=== PATIENT | female | born 1955 | race Caucasian/White ===

== ENCOUNTER 2020-04-11 20:23 | Emergency (ER) | payer OTHER ==
[~2020-04-11] VITALS: Ht 175.3 cm; Wt 120.2 kg
[~2020-04-11 20:23] MED LIST: CELEBREX 200 M200 M1 PO; DAILY MULTIPLE1 EACH PO; LIPITOR10 MG PO; MAXIDE PO; SINGULAIR 10 MG10 M1 PO; VITAMIN D400 UNI1 PO; VITAMIN E400 UNIT PO; XARELTO15 MG PO
[2020-04-11] MEDS ORDERED: CHLORTHALIDONE25 MG PO (20:32)
[2020-04-11] MEDS ORDERED: [UNRECOGNIZED DRUG - OTHER] PO (20:33)
[2020-04-11] MEDS ORDERED: LISINOPRIL2.5 MG PO (20:33)
[2020-04-11] MEDS ORDERED: ARIMIDEX PO (20:33)
[2020-04-11] MEDS ORDERED: ELIQUIS5 MG PO (20:34)
[2020-04-11 21:22] LABS: ABSOLUTE NEUTROPHILS 7.8 thou/uL (1.4-8.2); BASOPHILS 0.6 % (0.0-2.0); EOSINOPHILS 0.9 % (0.0-3.0); HEMATOCRIT 40.8 % (37.0-47.0); HEMOGLOBIN 14.2 gm/dL (12.0-15.0); LYMPHOCYTES 14.5 % (24.0-44.0); MCH 35.7 pg (26.0-34.0); MCHC 34.7 g/dL (28.0-37.0); MCV 102.8 fL (80.0-100.0); MONOCYTES 7.9 % (1.0-8.0); PLATELET COUNT 208 thou/uL (150-400); POLYS 76.1 % (36.0-66.0); RBC 3.97 mil/uL (4.20-5.00); RDW 12.4 % (10.5-14.5); WBC 10.3 thou/uL (4.0-11.0)
[2020-04-11 21:38] LABS: CALCIUM 9.3 mg/dL (8.5-10.1); CREATININE 1.3 mg/dL (0.6-1.0); POTASSIUM 3.6 mmol/L (3.5-5.1)
[2020-04-11 21:43] LABS: ALBUMIN 3.8 g/dL (3.4-5.0); TOTAL BILIRUBIN 0.4 mg/dL (0.2-1.0)
[2020-04-11 23:19] VITALS: BP 164/78
[2020-04-11 23:20] LABS: URINE BILIRUBIN NEGATIVE (Negative); URINE BLOOD TRACE (Negative); URINE CLARITY CLEAR; URINE COLOR YELLOW; URINE GLUCOSE-RANDOM* NEGATIVE (Negative); URINE KETONES 2+ (Negative); URINE LEUKOCYTES-REFLEX NEGATIVE (Negative); URINE NITRITE-REFLEX NEGATIVE (Negative); URINE PROTEIN (DIPSTICK) NEGATIVE (Negative); URINE SPECIFIC GRAVITY >= 1.030 (1.005-1.035); URINE UROBILINOGEN 0.2 E.U./dl (0.2-1.0)
[2020-04-11] MEDS ORDERED: FLOMAX0.4 MG PO (23:27)
[2020-04-11] MEDS ORDERED: ZOFRAN ODT4 MG PO (23:27)
[2020-04-11] MEDS ORDERED: TORADOL 10 MG T10 MG PO (23:27)
[2020-04-11] MEDS ORDERED: TRAMADOL 50 MG50 MG PO (23:27)
== END 2020-04-11 23:51 | disposition home or self-care (01) ==
LOC: ER 20:23
PROVIDERS: Emergency Medicine
DX: N20.2 Calculus of kidney with calculus of ureter (principal); J45.909 Unspecified asthma, uncomplicated; R11.2 Nausea with vomiting, unspecified; Z86.711 Personal history of pulmonary embolism; Z79.899 Other long term (current) drug therapy; Z88.2 Allergy status to sulfonamides; Z88.5 Allergy status to narcotic agent; Z88.8 Allergy status to other drugs, medicaments and biological substances; Z90.711 Acquired absence of uterus with remaining cervical stump